=== PATIENT | male | born 1970 | race Caucasian/White ===

== ENCOUNTER 2017-08-28 19:39 | Inpatient (IN) | payer OTHER ==
[~2017-08-28] VITALS: Ht 160 cm; Wt 57.2 kg
--- NOTE | 2017-08-28 19:39 | NUR ---
PT ELIZA ALS. TAKEN TO BED 10
--- NOTE | 2017-08-28 19:40 | NUR ---
Patient being evaluated by physician at bedside.
[2017-08-28] MEDS ORDERED: NACL 0.9% 1,000 ML IV ONE (19:50)
--- NOTE | 2017-08-28 19:51 | NUR ---
X-Ray at bedside.
[2017-08-28 19:55] VITALS: BP 93/66
--- NOTE | 2017-08-28 20:18 | NUR ---
Patient being evaluated by physician at bedside.
[2017-08-28 20:23] LABS: BASOPHILS # (AUTO) 0.8 K/uL (0.00-0.22); EOSINOPHILS # (AUTO) 0.1 K/uL (0-0.4); HEMOGLOBIN 13.5 g/dL (12.0-18.0); LYMPHOCYTES # (AUTO) 2.1 K/uL (2.0-11.5); MEAN CORPUSCULAR HEMOGLOBIN 28 pg (27-31); MEAN CORPUSCULAR HGB CONC 32 g/dL (33-37); MEAN CORPUSCULAR VOLUME 86 fL (80-94); MONOCYTES # (AUTO) 0.3 K/uL (0.8-1.0); NEUTROPHILS # (AUTO) 5.8 K/uL (1.8-7.7); PLATELET COUNT (AUTO) 148 K/uL (140-450); RED CELL DISTRIBUTION WIDTH 16.1 % (11.6-13.7); WHITE BLOOD COUNT (AUTO) 9.1 K/uL (4.8-10.8)
--- NOTE | 2017-08-28 20:24 | NUR ---
SPOKE TO DR BRYAN, WAIT FOR BOLUS TO FINISH, NO NEED TO CATH PT AT THIS TIME;
[2017-08-28 20:38] LABS: ANION GAP 18.8 (8-16); CARBON DIOXIDE 20.6 mmol/L (21-32); CREATININE 1.3 mg/dL (0.7-1.3); POTASSIUM 4.4 mmol/L (3.5-5.1)
[2017-08-28 20:44] LABS: TOTAL BILIRUBIN 0.7 mg/dL (0.0-1.0)
[2017-08-28 20:48] LABS: PROTHROMBIN TIME 13.2 secs (10.8-13.4)
--- NOTE | 2017-08-28 21:33 | NUR ---
DR BRYAN EVALUATING PT
[2017-08-28] MEDS ORDERED: MORPHINE SULFATE 2 MG/ML SYR IVP PRN (21:45)
[2017-08-28] MEDS ORDERED: ONDANSETRON 4 MG/2 ML VIAL IVP PRN (21:45)
[2017-08-28] MEDS ORDERED: ACETAMINOPHEN 325 MG TAB PO PRN (21:45)
[2017-08-28] MEDS ORDERED: LORazepam 2 MG/ML VIAL IVP PRN (21:45)
--- NOTE | 2017-08-28 21:48 | NUR ---
LAB AT BEDSIDE REDRAWING LACTIC
[2017-08-28] MEDS ORDERED: AMIODARONE 150 MG in DEXTROSE 5% 100 ML IV ONE (21:55)
[2017-08-28] MEDS ORDERED: AMIODARONE 150 MG/3 ML VIAL IV ONE (21:57)
--- NOTE | 2017-08-28 22:21 | NUR ---
Patient will be admitted to care of . Admited to ICU. Will go to room ICU BED 3. Belongings list completed. Report to ZOILA RODRIGUEZ.
[2017-08-28 22:30] VITALS: BP 111/53
--- NOTE | 2017-08-28 22:30 | NUR ---
PT ARRIVED IN THE UNIT AT 2220 VIA GURNEY. PT AWAKE, ALERT AND ORIENTED. ABLE TO MAKE NEEDS KNOWN. PT AFEBRILE. PT COOPERATIVE AND FRIENDLY. SINUS TACHYCARDIA ON MONITOR. PULSES ARE PALPABLE IN EXTREMITIES. DENIES CHEST PAIN. PT IN ROOM AIR. DENIES SOB. NO SIGNS OF DISTRESS NOTED. ABDOMEN ROUND, SOFT AND NONDISTENDED. BOWEL SOUNDS ACTIVE IN ALL QUADRANTS. PT HAS RIGHT AKA. SKIN INTACT. ACCORDING TO PT HE HAS PACEMAKER ON RIGHT CHEST. PT IS CONTINENT AND USES URINAL. PT CAME IN WITH RIGHT HAND PERIPHERAL IV 20G, WHEN LINE WAS FLUSHED, IT WAS LEAKING AND ALREADY LONG-TERM OUT. LINE WAS DISCONTINUED. PT ALSO CAME IN WITH LEFT FOREARM PERIPHERAL IV 20G. LINE FLUSHED AND WAS PATENT AND ASYMPTOMATIC. MRSA SPECIMEN COLLECTED. CALL LIGHT WITHIN REACH. BED AT LOW POSSIBLE POSITION. HOB AT 30 DEGREES. ALL SAFETY PRECAUTIONS ARE IN PLACE. WILL CONTINUE TO MONITOR PT.
[2017-08-29] VITALS (12 sets, daily range): BP systolic 85–122; BP diastolic 55–89
--- NOTE | 2017-08-29 00:06 | NUR ---
PT LAYING DOWN COMFORTABLY, APPEARS TO BE SLEEPING. NO SIGNS OF DISTRESS NOTED. SINUS TACHYCARDIA ON MONITOR. VS STABLE AT THIS TIME. PT AROUSABLE TO NAME AND ACCORDING TO PT HIS BP REALLY RUNS LOW, SBP AROUND 80S TO 90S. PT DENIES FEELING DIZZY. CALL LIGHT WITHIN REACH. ALL SAFETY PRECAUTIONS ARE IN PLACE. WILL CONTINUE TO MONITOR.
--- NOTE | 2017-08-29 00:57 | NUR ---
CHARGE NURSE SPOKE WITH DR. POSADAS TO FOLLOW-UP REGARDING AMIODARONE DRIP. ACCORDING TO DR. POSADAS THERE IS NO NEED TO CONTINUE PT ON THE DRIP. WILL CONTINUE TO MONITOR PT.
--- NOTE | 2017-08-29 03:35 | NUR ---
PT SLEEPING. VS STABLE AT THIS TIME. NO CHANGE IN CONDITION. NO C/O OF ANY DISCOMFORT FROM PT. PT DOES NOT APPEAR TO BE IN ANY DISTRESS. CALL LIGHT WITHIN REACH. ALL SAFETY PRECAUTIONS ARE IN PLACE. SINUS TACHYCARDIA ON MONITOR. WILL CONTINUE TO MONITOR PT.
--- NOTE | 2017-08-29 05:22 | NUR ---
NO CHANGE IN CONDITION AT THIS TIME. VS STABLE. PT AROUSABLE. NO C/O PAIN. PT STATES THAT HE IS FEELING OKAY. PT OFFERED WASH CLOTH TO WASH HIMSELF BUT SAYS HE IS OKAY. SINUS TACHYCARDIA ON MONITOR. ALL SAFETY PRECAUTIONS ARE IN PLACE. WILL CONTINUE TO MONITOR PT.
[2017-08-29 06:23] LABS: BASOPHILS # (AUTO) 0.3 K/uL (0.00-0.22); HEMOGLOBIN 12.4 g/dL (12.0-18.0); LYMPHOCYTES # (AUTO) 1.4 K/uL (2.0-11.5); MEAN CORPUSCULAR VOLUME 85 fL (80-94); RED BLOOD CELL COUNT(AUTO) 4.45 MIL/uL (4.20-6.10)
[2017-08-29 06:39] LABS: BASOPHILS % (AUTO) 3.8 % (0.0-2.0); EOSINOPHILS % (AUTO) 0.4 % (0.0-4.0); HEMATOCRIT 37.9 % (36-52); LYMPHOCYTES % (AUTO) 21.9 % (20.5-51.1); MEAN CORPUSCULAR HEMOGLOBIN 28 pg (27-31); MEAN CORPUSCULAR HGB CONC 33 g/dL (33-37); MONOCYTES # (AUTO) 0.9 K/uL (0.8-1.0); NEUTROPHILS % (AUTO) 60.9 % (42.2-75.2); PLATELET COUNT (AUTO) 114 K/uL (140-450); RED CELL DISTRIBUTION WIDTH 15.6 % (11.6-13.7); WHITE BLOOD COUNT (AUTO) 6.6 K/uL (4.8-10.8)
--- NOTE | 2017-08-29 06:42 | NUR ---
CALLED DR. ZEE TO INFORM HIM THAT THERE IS AN ORDER FOR CARDIAC CONSULT FOR PT. DR. ZEE SAID THAT HE WILL COME IN AND TAKE CARE OF THAT.
--- NOTE | 2017-08-29 07:10 | NUR ---
REPORT GIVEN TO JENNIFER SANTOYO FOR CONTINUITY OF CARE. PT IN STABLE CONDITION AT THIS TIME.
--- NOTE | 2017-08-29 07:15 | NUR ---
RECEIVED REPORT FROM NIGHT NURSE. PT IS ASLEEP, BUT AROUSABLE TO NAME. AAO X4, ABLE TO MAKE NEEDS KNOWN AND FOLLOWS COMMANDS. SPEAKS [place] ISLANDER. PT IS AFEBRILE, VITAL SIGNS STABLE. C/O RIGHT AKA PAIN OF 5/10. SINUS TACHYCARDIA ON MONITOR. ICD IN PLACE TO RIGHT UPPER CHEST, S/P HEART TRANSPLANT IN 2006. PULSES ARE PALPABLE TO ALL EXTREMITIES. DENIES CHEST PAIN. ON ROOM AIR, NO SOB NOTED. BREATHING EVEN AND UNLABORED. ABDOMEN SOFT, NONTENDER, NON DISTENDED, BOWEL SOUNDS PRESENT X 4 QUADRANTS. PT C/O PAIN AT PERIPHERAL IV G20 TO LEFT FOREARM, IV WAS DISCONTINUED. PT USES URINAL AND IS ABLE TO URINATE. SKIN INTACT, BUT PT HAS RIGHT AKA. NO EDEMA NOTED. BED IN LOWEST POSITION AND CALL LIGHT WITHIN REACH. WILL CONTINUE TO MONITOR.
[2017-08-29 07:16] LABS: ANION GAP 16.8 (8-16); CARBON DIOXIDE 17.7 mmol/L (21-32); CREATININE 0.9 mg/dL (0.7-1.3); POTASSIUM 4.5 mmol/L (3.5-5.1)
[2017-08-29 07:25] LABS: CREATINE KINASE MB 0.5 ng/mL (0-3.6)
[2017-08-29] MEDS: HYDROcodone/APAP 5/325 MG 1 TAB TAB PO PRN ×2 (07:35→17:55)
--- NOTE | 2017-08-29 07:35 | NUR ---
BREAKFAST SERVED. NO SIGNS OF DISTRESS NOTED AT THIS TIME. WILL CONTINUE TO MONITOR.
[2017-08-29] MEDS: ASPIRIN 81 MG TAB.CHEW PO SCH (08:10)
--- NOTE | 2017-08-29 08:30 | NUR ---
DR. MAR MADE AWARE OF MAGNESIUM LEVEL OF 1.6. ORDER RECEIVED.
--- NOTE | 2017-08-29 08:35 | NUR ---
MEDICATIONS ADMINISTERED. PT TOLERATED WELL.
[2017-08-29] MEDS ORDERED: MAGNESIUM SULFATE 50% 1,000 MG in NACL 0.9% 50 ML IV SCH (09:00)
[2017-08-29] MEDS ORDERED: ENOXAPARIN 40 MG/0.4 ML SYR SUBQ SCH (09:00)
--- NOTE | 2017-08-29 10:33 | NUR ---
PATIENT HAS BEEN SCREENED AND CATEGORIZED MODERATE NUTRITION RISK. PATIENT WILL BE SEEN WITHIN 3-5 DAYS OF ADMISSION. 08/31/17 - 09/02/[address]
--- NOTE | 2017-08-29 11:07 | NUR ---
PT IS RESTING COMFORTABLY AT THIS TIME. VITAL SIGNS STABLE. NO S/SX ACUTE DISTRESS NOTED. SAFETY PRECAUTIONS IN PLACE.
[2017-08-29] MEDS ORDERED: HYDROcodone/APAP 5/325 MG 1 TAB TAB PO PRN (11:20)
--- NOTE | 2017-08-29 11:20 | NUR ---
DR. MAR IN TO SEE AND EXAMINE PT. WILL FOLLOW UP ON ORDERS.
[2017-08-29] MEDS ORDERED: NACL 0.9% 1,000 ML IV SCH (11:25)
--- NOTE | 2017-08-29 12:10 | NUR ---
PT HAVING LUNCH, FAMILY AT BEDSIDE. NO C/O PAIN OR DISCOMFORT. NEEDS WELL ATTENDED. SAFETY MEASURES ENSURED.
[2017-08-29] MEDS ORDERED: [UNRECOGNIZED DRUG - CODE] PO (12:38)
[2017-08-29] MEDS ORDERED: CARV3.12 PO (12:38)
[2017-08-29] MEDS ORDERED: ATOR20TA PO (12:38)
[2017-08-29] MEDS ORDERED: PRED10TA5 PO (12:38)
[2017-08-29] MEDS ORDERED: CEL250 PO (12:38)
[2017-08-29] MEDS ORDERED: XAR10 PO (12:38)
[2017-08-29] MEDS ORDERED: SIRO0.5T PO (12:38)
[2017-08-29] MEDS ORDERED: VAS5 PO (12:38)
[2017-08-29 14:42] LABS: CREATINE KINASE MB 0.7 ng/mL (0-3.6)
--- NOTE | 2017-08-29 15:59 | NUR ---
DR. CARUSO IN TO SEE AND EXAMINE PT. WILL FOLLOW UP WITH NEW ORDERS.
--- NOTE | 2017-08-29 16:57 | NUR ---
NO CHANGE OF CONDITION AT THIS TIME. VITAL SIGNS STABLE. ALL SAFETY PRECAUTIONS IN PLACE. WILL CONTINUE TO MONITOR.
--- NOTE | 2017-08-29 17:30 | NUR ---
PT IS HAVING DINNER. NO DISTRESS NOTED. SAFETY PRECAUTIONS IN PLACE.
--- NOTE | 2017-08-29 18:09 | NUR ---
FAXED INITIAL REVIEW TO [facility] [phone] PHONE SAMIRA [phone]
--- NOTE | 2017-08-29 19:40 | NUR ---
REPORT GIVEN TO INTEGRITY CONSULTANT RN FOR CONTINUITY OF CARE. PT IS IN STABLE CONDITION.
--- NOTE | 2017-08-29 19:45 | NUR ---
RECEIVED BEDSIDE REPORT FROM YARELIS RODRIGUEZ. PATIENT IS GSC 15, BUT AT THIS TIME SLEEPING BUT OPENS EYES SPONTANEOUSLY. ST ON PRINTING SUPERVISOR. VITAL SIGNS WNL. #22 IN RIGHT HAND RECEIVING NORMAL SALINE TKO. PATIENT'S DINNER TRAY IS ON BEDSIDE TABLE. 40% OF DINNER TRAY CONSUMED. INITIAL ASSESSMENT COMPLETED. HOB AT 30 DEGREES WITH BED IN LOWEST POSITION. CALL LIGHT WITHIN REACH. CONTINUE TO MONITOR PATIENT.
--- NOTE | 2017-08-29 20:10 | NUR ---
DR. Clotilde ZEE ON UNIT. GAVE STATUS UPDATE TO . NO NEW ORDERS RECEIVED AT THIS TIME.
--- NOTE | 2017-08-29 20:15 | NUR ---
DR. ZEE AT BEDSIDE TO ASSESS PATIENT.
--- NOTE | 2017-08-29 20:18 | NUR ---
NEW ORDERS RECEIVED FROM DR. Clotilde ZEE. PATIENT IS OK TO TRANSFER TO TELEMETRY.
--- NOTE | 2017-08-29 20:51 | NUR ---
SPOKE TO DR. CARDOZO. INFORMED MD REGARDING DR. Clotilde ZEE'S STATING PATIENT IS OK TO TRANSFER TO TELEMETRY. DR. CARDOZO AGREED AND STATED OK. WILL FOLLOW UP WITH MD ORDERS.
[2017-08-29] MEDS ORDERED: CARVEDILOL 3.125 MG TAB PO SCH (21:00)
[2017-08-29] MEDS: MYCOPHENOLATE 250 MG CAP PO SCH (21:41)
[2017-08-29] MEDS: cycloSPORINE (MODIFIED) 25 MG CAPLF PO SCH (21:42)
--- NOTE | 2017-08-29 21:44 | NUR ---
TOLERATED DUE MEDICATIONS. PT DAUGHTER VISITING AT BEDSIDE. NO SIGNS OF DISTRESS NOTED. PATIENT'S NEEDS MET AT THIS TIME. CONTINUE TO MONITOR PATIENT.
--- NOTE | 2017-08-29 21:50 | NUR ---
BP IS 91/61. HELD SCHEDULED 2100 COREG AT THIS TIME.
--- NOTE | 2017-08-29 23:04 | NUR ---
PATIENT SLEEPING IN BED. NO SIGNS OF RESPIRATORY DISTRESS NOTED. HOB AT 30 DEGREES WITH BED IN LOWEST POSITION. WILL CONTINUE TO MONITOR PATIENT.
[2017-08-30] VITALS (7 sets, daily range): BP systolic 87–158; BP diastolic 57–90
--- NOTE | 2017-08-30 01:11 | NUR ---
PATIENT SLEEPING IN BED. NO SIGNS OF SOB NOTED. VITAL SIGNS WNL. HOB AT 30 DEGREES WITH BED IN LOWEST POSITION. CONTINUE TO MONITOR PATIENT.
--- NOTE | 2017-08-30 02:15 | NUR ---
PATIENT TRANSFERRED TO ROOM 120B IN [facility]. ALL PATIENT'S BELONGINGS ACCOMPANIED WITH PATIENT. PATIENT IN STABLE CONDITION. BEDSIDE REPORT GIVEN TO CARLOS A RODRIGUEZ.
--- NOTE | 2017-08-30 02:20 | NUR ---
RECEIVED REPORT FROM ICU NURSE AT THE BEDSIDE. PATIENT AWAKE ALERT ORIENTED X4, NO S/S OF DISTRESS NOTED, RESPIRATION EVEN AND UNLABORED, TELE MONITOR PLACED ON PATIENT, IV PATENT AND INTACT, PLAN OF CARE DISCUSSED, PATIENT VERBALIZED UNDERSTANDING, CALL LIGHT WITHIN REACH, SAFETY MEASURE ENSURED, WILL CONTINUE TO MONITOR.
--- NOTE | 2017-08-30 04:17 | NUR ---
PATIENT WAS SLEEPING, EASY TO AROUSE, VITAL SIGNS STABLE, NO S/S OF DISTRESS NOTED, RESPIRATION EVEN AND UNLABORED, CALL LIGHT WITHIN REACH, SAFETY MEASURE ENSURED, WILL CONTINUE TO MONITOR.
--- NOTE | 2017-08-30 06:05 | NUR ---
PATIENT WAS SLEEPING, EASY TO AROUSE, NO S/S OF DISTRESS NOTED, RESPIRATION EVEN AND UNLABORED, CALL LIGHT WITHIN REACH, SAFETY MEASURE ENSURED, WILL CONTINUE TO MONITOR.
--- NOTE | 2017-08-30 06:50 | NUR ---
CALLED PLACED X2 TO PATIENT'S DAUGHTER MATTHEW CASTILLO AT [phone] TO INFORM HER PATIENT TRANSFERRED TO [facility] RECORDED GREETING RECEIVED THAT CELLULAR SUBSCRIBER IS NOT AVAILABLE. WILL INFORM MST RN.
[2017-08-30 07:39] LABS: BASOPHILS # (AUTO) 0.1 K/uL (0.00-0.22); BASOPHILS % (AUTO) 1.6 % (0.0-2.0); EOSINOPHILS % (AUTO) 0.7 % (0.0-4.0); HEMATOCRIT 37.2 % (36-52); HEMOGLOBIN 12.2 g/dL (12.0-18.0); LYMPHOCYTES # (AUTO) 1.1 K/uL (2.0-11.5); LYMPHOCYTES % (AUTO) 17.4 % (20.5-51.1); MEAN CORPUSCULAR HEMOGLOBIN 28 pg (27-31); MEAN CORPUSCULAR HGB CONC 33 g/dL (33-37); MEAN CORPUSCULAR VOLUME 85 fL (80-94); MONOCYTES # (AUTO) 0.7 K/uL (0.8-1.0); MONOCYTES % (AUTO) 10.5 % (1.7-9.3); NEUTROPHILS # (AUTO) 4.3 K/uL (1.8-7.7); NEUTROPHILS % (AUTO) 69.8 % (42.2-75.2); PLATELET COUNT (AUTO) 127 K/uL (140-450); RED CELL DISTRIBUTION WIDTH 15.9 % (11.6-13.7); WHITE BLOOD COUNT (AUTO) 6.2 K/uL (4.8-10.8)
--- NOTE | 2017-08-30 07:40 | NUR ---
ENDORSED PLAN OF CARE TO DAY SHIFT RN. PATIENT IS IN STABLE CONDITION.
--- NOTE | 2017-08-30 07:45 | NUR ---
RECEIVED REPORT FROM NIGHTSHIFT NURSE AT BEDSIDE. PT AWAKE A/O X4. NO S/S OF DISTRESS. PT ON RA. NO SOB. NO COMPLAINTS OF PAIN AT THIS TIME. IV LINE NOTED LEFT HAND 22G TKO. BED LOWERED CALL LIGHT WITHIN REACH. WILL CONTINUE TO MONITOR
[2017-08-30 08:50] LABS: ALBUMIN 2.6 g/dL (3.4-5.0); ANION GAP 17.6 (8-16); CARBON DIOXIDE 19.7 mmol/L (21-32); POTASSIUM 4.3 mmol/L (3.5-5.1); TOTAL BILIRUBIN 1.1 mg/dL (0.0-1.0)
[2017-08-30] MEDS ORDERED: SIROLIMUS 0.5 MG PO SCH (09:00)
[2017-08-30] MEDS: ASPIRIN 81 MG TAB.CHEW PO SCH (10:35)
[2017-08-30] MEDS: MYCOPHENOLATE 250 MG CAP PO SCH ×2 (10:36→20:56)
[2017-08-30] MEDS: HYDROcodone/APAP 5/325 MG 1 TAB TAB PO PRN (10:37)
[2017-08-30] MEDS: ATORVASTATIN 20 MG TAB PO SCH (10:37)
[2017-08-30] MEDS: predniSONE 10 MG TAB PO SCH (10:37)
[2017-08-30] MEDS: SIROLIMUS 0.5 MG PO SCH (10:39)
[2017-08-30] MEDS: cycloSPORINE (MODIFIED) 25 MG CAPLF PO SCH ×2 (10:40→20:56)
--- NOTE | 2017-08-30 10:45 | NUR ---
PATIENT BP IS 97/63 HR 120'S-130'S, PAGED DR MAR IF OKAY TO GIVE COREG 3.125 PO, STATED TO ORDER COREG 1.562MG PO BID. WILL PLACE ORDERS.
[2017-08-30] MEDS ORDERED: CARVEDILOL 3.125 MG TAB PO SCH (10:49)
[2017-08-30] MEDS: RIVAROXABAN 10 MG TAB PO SCH (10:49)
--- NOTE | 2017-08-30 12:30 | NUR ---
PT RESTING AT THIS TIME. PT IN COMFORTABLE POSITION. NO PAIN. AND WITH FAMILY WILL CONTINUE TO MONITOR.
--- NOTE | 2017-08-30 15:24 | NUR ---
CM NOTE CONCURRENT REVIEW FAXED TO [facility] (FAX# [phone], ATTN: SAMIRA [phone]) AND [employer] (FAX# [phone], C: [phone])
--- NOTE | 2017-08-30 15:31 | NUR ---
CALLED DR SALINAS REGARDING CONSULT FOR PATIENT, PATRICA CO DIRECTOR STATED IS WITH ANOTHER PATIENT AND WILL CALL BACK ONCE HE HAS A CHANCE.
--- NOTE | 2017-08-30 15:40 | NUR ---
PAGED DR Odalys ZEE REGARDING V TACH EPISODE FOR A FEW SECONDS AND GAVE NO NEW ORDERS.
--- NOTE | 2017-08-30 18:59 | NUR ---
DR SALINAS CALLED TWICE IN REGARDS TO PATIENT'S DEFIBRILLATOR HOWEVER PHONE CALL WAS CUT OFF, PAGED HOWEVER, IS PLUG MACHINE OPERATOR. WILL AWAIT CALLBACK.
[2017-08-30 19:04] LABS: APPEARANCE,URINE CLEAR (CLEAR); BILIRUBIN,URINE NEGATIVE (NEGATIVE); BLOOD, URINE NEGATIVE (NEGATIVE); COLOR,URINE YELLOW (YELLOW); LEUKOCYTE ESTERASE ,URINE NEGATIVE (NEGATIVE); NITRITE, URINE NEGATIVE (NEGATIVE); UGLUCOSE NEGATIVE (NEGATIVE)
--- NOTE | 2017-08-30 19:09 | NUR ---
PAGED DR POSADAS REGARDING MAGNESIUM OF 1.6, ORDERED MAGNESIUM 3 GM IV ONCE. WILL PLACE ORDERS.
[2017-08-30] MEDS ORDERED: COMMUNICATION ORDER MC PRN (19:10)
--- NOTE | 2017-08-30 19:20 | NUR ---
pt report given to pediatric lpn nurse at bedside. no s/s of distress.
--- NOTE | 2017-08-30 19:21 | NUR ---
PATIENT REPORT RECEIVED FROM MORNING NURSE AT BEDSIDE. PATIENT IS AWAKE, ALERT AND ORIENTED. NO SIGNS AND SYMPTOMS OF DISTRESS NOTED. NO COMPLAINTS OF PAIN AT THIS TIME. PATIENT'S FAMILY IS AT BEDSIDE. PATIENT IS ON ROOM AIR. IV SITE NOTED ON RIGHT ARM, IVF INFUSING WELL. RIGHT AKA NOTED. PLAN OF CARE DISCUSSED WITH PATIENT, PATIENT VERBALIZED UNDERSTANDING. BED IN LOWEST POSITION, SIDE RAILS UP AND CALL LIGHT WITHIN REACH. WILL CONTINUE TO MONITOR.
[2017-08-30] MEDS ORDERED: DEXTROSE 5% IV SCH (20:00)
[2017-08-30] MEDS ORDERED: MAGNESIUM SULFATE IV SCH (20:00)
--- NOTE | 2017-08-30 20:10 | NUR ---
PATIENT SEEN BY DR. PRASAD Addendum: 08/30/17 at 2211 by Evangelina Momin RN WRONG PATIENT
--- NOTE | 2017-08-30 20:10 | NUR ---
REP CAME IN FROM [facility] CARDIAC RHYTHM MANAGEMENT DIV[facility] TO CHECK PATIENT'S DEFIBRILLATOR. STATED THAT DEFIBRILLATOR IS NOT FROM [facility]. HEAT TREATING BLUER SAID THAT HE NOTIFIED DR. SALINAS.
--- NOTE | 2017-08-30 20:13 | NUR ---
PATIENT SEEN BY DR. Clotilde ZEE Addendum: 08/30/17 at 2014 by Evangelina Momin RN WRONG PATIENT
--- NOTE | 2017-08-30 20:19 | NUR ---
DR. ZEE SAID OK TO HOLD COREG DUE TO LOW BLOOD PRESSURE
[2017-08-30] MEDS: CARVEDILOL 3.125 MG TAB PO SCH (20:51)
--- NOTE | 2017-08-30 23:23 | NUR ---
INFORMED DR. MORRIS ABOUT PATIENT'S IMPLANTED DFIB, AND THAT [facility] VISITED EARLIER TO CHECK IT. ALSO NOTIFIED DR. MORRIS THAT [facility] STATED THAT IT WAS NOT FROM THEIR COMPANY. DR. MORRIS WILL NOTIFY DR. SALINAS.
[2017-08-31] VITALS (15 sets, daily range): BP systolic 88–125; BP diastolic 52–79
--- NOTE | 2017-08-31 02:30 | NUR ---
CHECKED ON PATIENT. PATIENT IS ASLEEP. NO SIGNS AND SYMPTOMS OF DISTRESS NOTED. BREATHING EVEN AND UNLABORED. WILL CONTINUE TO MONITOR.
--- NOTE | 2017-08-31 07:15 | NUR ---
RECEIVED PATIENT REPORT AT BEDSIDE. PATIENT AWAKE ALERT AND ORIENTED. PATIENT ON ROOM AIR. NO SOB. PATIENT DENIES CHEST PAIN AT THIS TIME. PATIENT REPORTS OF PAIN ON HIS RIGHT STUMP. WILL MEDICATE. PATIENT ON TELE MONITORING. BED LOWERED WITH CALL LIGHT WITHIN REACH. WILL CONTINUE TO MONITOR
--- NOTE | 2017-08-31 07:31 | NUR ---
PATIENT REPORT GIVEN TO MORNING NURSE FOR CONTINUITY OF CARE. PATIENT IS IN STABLE CONDITION.
[2017-08-31 07:34] LABS: BASOPHILS % (AUTO) 0.8 % (0.0-2.0); EOSINOPHILS % (AUTO) 0.7 % (0.0-4.0); HEMOGLOBIN 11.9 g/dL (12.0-18.0); LYMPHOCYTES # (AUTO) 1.2 K/uL (2.0-11.5); LYMPHOCYTES % (AUTO) 19.6 % (20.5-51.1); MEAN CORPUSCULAR HEMOGLOBIN 29 pg (27-31); MEAN CORPUSCULAR HGB CONC 34 g/dL (33-37); MEAN CORPUSCULAR VOLUME 84.2 fL (80-94); MONOCYTES # (AUTO) 0.7 K/uL (0.8-1.0); MONOCYTES % (AUTO) 11.5 % (1.7-9.3); NEUTROPHILS # (AUTO) 4.2 K/uL (1.8-7.7); NEUTROPHILS % (AUTO) 67.4 % (42.2-75.2); PLATELET COUNT (AUTO) 119 K/uL (140-450); RED BLOOD CELL COUNT(AUTO) 4.15 MIL/uL (4.20-6.10); RED CELL DISTRIBUTION WIDTH 15.9 % (11.6-13.7); WHITE BLOOD COUNT (AUTO) 6.1 K/uL (4.8-10.8)
[2017-08-31 07:59] LABS: ALBUMIN 2.6 g/dL (3.4-5.0); ANION GAP 18.6 (8-16); CARBON DIOXIDE 17.9 mmol/L (21-32); CREATININE 0.9 mg/dL (0.7-1.3); POTASSIUM 3.5 mmol/L (3.5-5.1); TOTAL BILIRUBIN 0.8 mg/dL (0.0-1.0)
[2017-08-31] MEDS: CARVEDILOL 3.125 MG TAB PO SCH (09:00)
[2017-08-31] MEDS: MYCOPHENOLATE 250 MG CAP PO SCH (09:19)
[2017-08-31] MEDS: HYDROcodone/APAP 5/325 MG 1 TAB TAB PO PRN (09:20)
[2017-08-31] MEDS: ASPIRIN 81 MG TAB.CHEW PO SCH (09:20)
[2017-08-31] MEDS: predniSONE 10 MG TAB PO SCH (09:20)
[2017-08-31] MEDS: ATORVASTATIN 20 MG TAB PO SCH (09:20)
[2017-08-31] MEDS: SIROLIMUS 0.5 MG PO SCH (09:21)
[2017-08-31] MEDS: RIVAROXABAN 10 MG TAB PO SCH (09:32)
[2017-08-31] MEDS: cycloSPORINE (MODIFIED) 25 MG CAPLF PO SCH (09:35)
--- NOTE | 2017-08-31 09:45 | NUR ---
PATIENT SEEN BY BEATRIZ FROM [facility]. INTERROGATION DONE AT BEDSIDE. FINDINGS REPORTED TO DR SALINAS.
--- NOTE | 2017-08-31 10:45 | NUR ---
PATIENT SHOUTING FOR HELP. PATIENT REPORTS THAT HIS DEFIBRILLATOR HAS SHOCKED HIM. INFORMED DR SALINAS. ORDERS PATIENT TO BE TRANSFERRED TO ICU AND TO BE STARTED ON AMIODARONE DRIP. ALSO ORDERS THE PATIENT TO BE TRANSFERRED TO HIGHER ACUITY OF CARE
--- NOTE | 2017-08-31 10:50 | NUR ---
PATIENT TRANSFERRED TO ICU. PATIENT AWAKE, ALERT AND ORIENTED. NO ACUTE S/S OF DISTRESS AT THIS TIME
--- NOTE | 2017-08-31 10:57 | NUR ---
RECEIVED BEDSIDE REPORT FROM [facility] RN, ALYSSA, FOR CONTINUITY OF CARE. PATIENT IS AAOX4, ABLE TO MAKE NEEDS KNOWN, ABLE TO FOLLOW SIMPLE COMMANDS. PATIENT SKIN IS INTACT, WARM AND DRY. HAS PERIPHERAL IV SITE TO RIGHT HAND, PATENT, ASYMPTOMATIC, INTACT. PATIENT HAS HX OF HEART TRANSPLANT WITH BUILT IN DEFIB, COMPLAINT OF PAIN FROM SHOCK, DOCTOR AWARE, PER ST JENNIFER ON MONITOR. PATIENT IS ON ROOM AIR. CALL LIGHT WITHIN REACH, HOB IN SEMI FOWLERS IN LOW POSITION, WILL MONITOR CLOSELY
[2017-08-31] MEDS ORDERED: AMIODARONE 150 MG in DEXTROSE 5% 100 ML IV ONE (11:05)
[2017-08-31] MEDS ORDERED: AMIODARONE 150 MG in DEXTROSE 5% 100 ML IV SCH (11:30)
[2017-08-31] MEDS ORDERED: AMIODARONE 450 MG in DEXTROSE 5% 250 ML IV SCH (11:45)
--- NOTE | 2017-08-31 13:14 | NUR ---
FAXED CONCURRENT REVIEW TO [facility] [phone] PHONE SAMIRA [phone] I CALLED SAMIRA FROM [facility] AND INFORMED HER OF ORDER FOR HIGHER LEVEL, POS [facility]. SHE SAID THEY ARE NOT CONTRACTED WITH THEM. TO TRY [facility]. I CALLED [facility] AND SPOKE WITH MAGGY [phone] AND FAXED INQUIRY. I SPOKE WITH SAMIRA AND SHE SAID THAT IF THE PATIENT GOES , THE AUTH FOR [facility] IS [id number].
--- NOTE | 2017-08-31 13:25 | NUR ---
DR. MAR AT BEDSIDE TO EXAMINE PATIENT, UPDATED ON PATIENT'S CONDITION, WILL FOLLOW UP ON ANY ORDERS.
--- NOTE | 2017-08-31 13:43 | NUR ---
I SPOKE WITH SAMIRA FROM [facility]. THE AUTH FOR [facility] IS [id number]. I CALLED MAGGY AT [facility] AND GAVE HER THE AUTH NUMBER.
--- NOTE | 2017-08-31 13:51 | NUR ---
ECOMMERCE MARKETING MANAGER AT BEDSIDE FOR ECHOCARDIOGRAM, NO SIGNS OF DISTRESS NOTED, WILL CONTINUE TO MONITOR
--- NOTE | 2017-08-31 14:36 | NUR ---
IN TO SEE PATIENT, UPDATED ON PATIENT'S CONDITIONS. WILL FOLLOW UP ON ANY ORDERS.
--- NOTE | 2017-08-31 15:35 | NUR ---
RECEIVED A CALL FROM [place] FROM [facility], . SHE SAID THE PATIENT HAS BEEN ACCEPTED UNDER . SHE IS JUST WAITING FOR A BED. I GAVE HER THE PHONE NUMBER TO ICU. I CALLED ICU AND SPOKE WITH JEANNE AND INFORMED HER. I TOLD HER TO GET THE RECORDS COPIED AND ON DISC. I GAVE [place] THE AUTH NUMBER FROM [facility].
[2017-08-31] MEDS ORDERED: METHYLPREDNISOLONE SS IV SCH (17:00)
[2017-08-31] MEDS ORDERED: DEXTROSE 5% IV SCH (17:00)
--- NOTE | 2017-08-31 17:37 | NUR ---
CALLED KIT RODRIGUEZ FROM [facility] TO PROVIDE REPORT FOR CONTINUITY OF CARE.
--- NOTE | 2017-08-31 19:10 | NUR ---
CALLED [facility] DISPATCH. REQUESTED TO SEND BACK AMBULANCE TO THE UNIT. PATIENT WILL NOT BE ON [id number] DRIP DURING TRANSPORT. PER DISPATCH, ETA WILL BE IN [address] [facility] AT [phone], SPOKE WITH ESPERANZA, METAL FURRER AND INFORMED THAT AMBULANCE WILL PRODUCT SAFETY SPECIALIST THE PATIENT HERE AT ABOUT 2100.
--- NOTE | 2017-08-31 19:25 | NUR ---
VS STABLE AT THIS TIME. PT AWAKE, ALERT, AND ORIENTED. ABLE TO MAKE NEEDS KNOWN. FAMILY AT BEDSIDE. PT AFEBRILE. COOPERATIVE TOWARDS STAFF. PT IN ROOM AIR. NO SIGNS OF RESPIRATORY DISTRESS NOTED. LUNG SOUNDS CLEAR. OXYGEN SATURATION WNL. S1+S2 HEARD. SINUS RHYTHM ON MONITOR. PULSES PALPABLE. ABDOMEN ROUND, SOFT AND NONDISTENDED. BOWEL SOUNDS ACTIVE IN ALL QUADRANTS. PT ABLE TO USE URINAL. SKIN IS INTACT. PT HAS RIGHT AKA. PT HAS RIGHT HAND PERIPHERAL IV 22G. LINE PATENT, INTACT, AND ASYMPTOMATIC. RECIEVED PT ON AMIODARONE DRIP. BED AT LOW POSSIBLE POSITION. ALL SAFETY PRECAUTIONS ARE IN PLACE. WILL CONTINUE TO MONITOR PT.
--- NOTE | 2017-08-31 20:00 | NUR ---
[facility] AM[facility]ULANCE ARRIVE AT THIS TIME, FAMILY AT BEDSIDE. CALLED [facility] [phone], SPOKE WITH ESPERANZA (WOOD HEEL FLAP RUBBER), AND INFORMED THAT [facility] ALREADY HERE TO COOK SPECIALTY THE PATIENT.
--- NOTE | 2017-08-31 20:13 | NUR ---
[facility] LEFT THE UNIT WITH THE PT. REPORT AND PACKET GIVEN TO TRANSPORT. VS STABLE. PT HAS NO BELONGINGS IN THE DRAWER. PT AWARE THAT HE IS BEING TRANSFERRED TO [facility]. PT SKIN IS INTACT. PT IN STABLE CONDITION WHEN HE LEFT THE UNIT.
[2017-08-31] MEDS ORDERED: COMMUNICATION ORDER MC SCH (21:00)
[2017-09-01] MEDS ORDERED: DEXTROSE 5% IV SCH (04:00)
[2017-09-01] MEDS ORDERED: METHYLPREDNISOLONE SS IV SCH (04:00)
== END 2017-08-31 20:13 | disposition short-term general hospital (02) | DRG 196 ==
LOC: MED 19:39 → MIC 22:00 → MTU 08-30 02:10 → MIC 08-31 10:50
PROVIDERS: ADMIT Hospitalist; ATTEND Hospitalist
DX: I49.01 Ventricular fibrillation (principal); I42.9 Cardiomyopathy, unspecified; Z94.1 Heart transplant status; E83.42 Hypomagnesemia; I47.2 Ventricular tachycardia; I73.9 Peripheral vascular disease, unspecified; I47.1 Supraventricular tachycardia; I48.91 Unspecified atrial fibrillation; E78.5 Hyperlipidemia, unspecified; Z79.01 Long term (current) use of anticoagulants; Z95.810 Presence of automatic (implantable) cardiac defibrillator; Z89.511 Acquired absence of right leg below knee; Z87.891 Personal history of nicotine dependence; Z79.82 Long term (current) use of aspirin; Z79.899 Other long term (current) drug therapy
CPT/HCPCS: 36415; 71045; 80048; 80053; 81003; 82550; 82553; 83605; 83690; 83735; 83880; 84484; 85025; 85610; 85730; 87040; 87081; 93005; 96361; 96374; 99285; J0282; J1650; J2920; J3475; J7030; J7060; J7512; J7516; J7517; Q0092